=== PATIENT | male | born 1985 | race Hispanic/Latino ===

== ENCOUNTER 2016-09-25 18:46 | Emergency (ER) | payer OTHER ==
[2016-09-25] MEDS ORDERED: CARDIZEM IV ONE (20:01)
[2016-09-25 20:04] LABS: Basophils % (Auto) 0.2 % (0.0-1.8); Eosinophils % (Auto) 1.7 % (0.0-4.3); Hematocrit 41.9 % (35.5-45.6); Hemoglobin 14.8 gm/dl (11.8-15.2); Mean Corpuscular HGB Conc 35 % (32-34); Mean Corpuscular Hemoglobin 31 pg (28-32); Mean Corpuscular Volume 89 fl (84-94); Platelet Count 231 K/mm3 (140-440); Red Blood Count 4.73 M/mm3 (3.65-5.03); Red Cell Distribution Width 12.6 % (13.2-15.2); White Blood Count 10.5 K/mm3 (4.5-11.0)
--- NOTE | 2016-09-25 20:06 | Emergency Department Report ---
ED Palpitations HPI - General Chief Complaint: Arrhythmia/Palpitations Stated Complaint: HEART PALPITATIONS Time Seen by Provider: 09/25/16 19:56 Source: patient Mode of arrival: Ambulatory Limitations: No Limitations - History of Present Illness Initial Comments: Patient is a 22-year-old male with a known history of WPW an ablation in 2006 here with sudden onset of arrhythmia this morning at 9 AM. Patient felt palpitations last heart rate was irregular. He's had some shortness of breath with this. No chest pain. He has not had any episodes of this since his ablation. No fevers chills nausea vomiting. His last meal was approximately 2 hours ago. MD Complaint: rapid heart beat -: Sudden Time: 09:00 Context: occured during rest Arrythmia History: other (WPW) Associated Symptoms: shortness of breath. denies: chest pain, nausea/vomiting, anxiety - Related Data Previous Rx's Medication Instructions Recorded Last Taken Type Metoprolol [Lopressor TAB] 25 mg PO BID #60 tablet 09/25/16 Unknown Rx Allergies Allergy/AdvReac Type Severity Reaction Status Date / Time cefaclor [From Ceclor] Allergy Hives Verified 09/25/16 19:03 Penicillins Allergy Itching Verified 09/25/16 19:03 Sulfa (Sulfonamide Allergy Dizziness Verified 09/25/16 19:03 Antibiotics) ED Review of Systems ROS: Stated complaint: HEART PALPITATIONS Other details as noted in HPI Constitutional: denies: chills, fever Eyes: denies: eye pain, eye discharge, vision change ENT: denies: ear pain, throat pain Respiratory: shortness of breath. denies: cough, wheezing Cardiovascular: palpitations. denies: chest pain Endocrine: no symptoms reported Gastrointestinal: denies: abdominal pain, nausea, diarrhea Musculoskeletal: denies: back pain, joint swelling, arthralgia Skin: denies: rash, lesions Neurological: denies: headache, weakness, paresthesias Psychiatric: denies: anxiety, depression Hematological/Lymphatic: denies: easy bleeding, easy bruising ED Past Medical Hx - Past Medical History Previous Medical History?: Yes Additional medical history: WPW with ablation in 2006 - Surgical History Additional Surgical History: WPW ablasion 2006 - Family History Family history: no significant - Social History Smoking Status: Never Smoker Substance Use Type: None - Medications Home Medications: Home Medications Medication Instructions Recorded Confirmed Last Taken Type Metoprolol [Lopressor TAB] 25 mg PO BID #60 tablet 09/25/16 Unknown Rx ED Physical Exam - General Limitations: No Limitations General appearance: alert, in no apparent distress - Head Head exam: Present: atraumatic, normocephalic - Eye Eye exam: Present: normal appearance - ENT ENT exam: Present: mucous membranes moist - Neck Neck exam: Present: normal inspection - Respiratory Respiratory exam: Present: normal lung sounds bilaterally. Absent: respiratory distress - Cardiovascular Cardiovascular Exam: Present: tachycardia, irregular rhythm, normal heart sounds. Absent: systolic murmur, diastolic murmur, rubs, gallop - GI/Abdominal GI/Abdominal exam: Present: soft, normal bowel sounds - Rectal Rectal exam: Present: deferred - Extremities Exam Extremities exam: Present: normal inspection - Back Exam Back exam: Present: normal inspection - Neurological Exam Neurological exam: Present: alert, oriented X3 - Psychiatric Psychiatric exam: Present: normal affect, normal mood - Skin Skin exam: Present: warm, dry, intact, normal color. Absent: rash ED Course Vital Signs 09/25/16 09/25/16 09/25/16 18:57 19:46 19:57 Pulse Rate 114 H 121 H 100 H Respiratory 18 16 Rate Blood Pressure 117/92 Blood Pressure 126/82 [Right] O2 Sat by Pulse 100 100 Oximetry 09/25/16 09/25/16 09/25/16 20:15 20:30 23:05 Pulse Rate 96 H 96 H 120 H Respiratory 18 19 Rate Blood Pressure 151/106 Blood Pressure 151/106 [Right] O2 Sat by Pulse 100 Oximetry - Procedure Description Procedures done: DC cardioversion 100 J - timeout was called. Patient was sedated with etomidate 10 mg and fentanyl 50 mcg. Cardioversion was successful and patient tolerated the procedure well. - Moderate Sedation Indications: other (cardioversion) ASA Class: I Mallampati Airway Score: 1 Preparation: athletic monitor applied, pulse oximeter, capnometry used, supplemental O2 applied, suction/airway equipment at bedside Fentanyl: IV (50 mg) IV Etomidate Dose (mgs): 10 Complications: none Interventions: oxygen applied Patient Tolerated Procedure: well ED Medical Decision Making - Lab Data Result diagrams: 09/25/16 19:43 09/25/16 19:43 Laboratory Results - last 24 hr 09/25/16 09/25/16 19:43 19:43 WBC 10.5 RBC 4.73 Hgb 14.8 Hct 41.9 MCV 89 MCH 31 MCHC 35 H RDW 12.6 L Plt Count 231 Lymph % (Auto) 28.6 Hayes % (Auto) 5.6 Eos % (Auto) 1.7 Baso % (Auto) 0.2 Lymph # 3.0 Hayes # 0.6 Eos # 0.2 Baso # 0.0 Seg Neutrophils % 63.9 Seg Neutrophils # 6.7 Sodium 143 Potassium 4.3 Chloride 102.0 Carbon Dioxide 26 Anion Gap 19 BUN 10 Creatinine 0.9 Estimated GFR > 60 BUN/Creatinine Ratio 11.11 Glucose 95 Calcium 9.2 Troponin T < 0.010 - EKG Data -: EKG Interpreted by Me Rate: tachycardia - EKG Data 09/25/16 20:06 EKG shows tachycardia rate 120 irregularly irregular rhythm no ST-T wave changes 09/25/16 23:29 Repeat EKG shows sinus rate 79 and normal axis normal intervals and no ST-T wave changes 11:29pm - Medical Decision Making Patient is 30-year-old male with a known history of WPW here with complaint of palpitations and tachycardia. Patient with known onset of symptoms at 9 AM. He denies chest pain nausea vomiting. He is mildly short of breath with this tachycardia. He is hemodynamically stable here in the emergency department. Plan to treat with IV diltiazem single dose and will reassess. Diltiazem slowed rate did not resolve patient's A. fib. Discussed case with on- call cardiology Dr. Becerra. Agrees with plan to perform DC cardioversion. Plan to sedate patient with etomidate and fentanyl. Patient was cardioverted with 100 J. He was sedated with etomidate and fentanyl with success. He was observed for one hour after sedation is alert and oriented and with his mother he will be discharged care of his parents. Portions of this chart were dictated with dictation software. There may be dictation errors contained within this note. Critical Care Time: Yes Critical care time in (mins) excluding proc time.: 45 Critical care attestation.: If time is entered above; I have spent that time in minutes in the direct care of this critically ill patient, excluding procedure time. Critical Care Time: 45 ED Disposition Clinical Impression: Rapid atrial fibrillation Disposition: DC-01 TO HOME OR SELFCARE Is pt being admited?: No Condition: Stable Instructions: Atrial Fibrillation (ED), Cardioversion (ED) Prescriptions: Metoprolol [Lopressor TAB] 25 mg PO BID #60 tablet Referrals: PRIMARY CARE, [Primary Care Provider] - 3-5 Days MED CORCORAN MD [Staff Physician] - 3-5 Days
[2016-09-25 20:15] LABS: Anion Gap 19 mmol/L; BUN/Creatinine Ratio 11.11; Blood Urea Nitrogen 10 mg/dL (9-20); Calcium 9.2 mg/dL (8.4-10.2); Carbon Dioxide 26 mmol/L (22-30); Glucose 95 mg/dL (75-100); Potassium 4.3 mmol/L (3.6-5.0); Sodium 143 mmol/L (137-145)
[2016-09-25] MEDS ORDERED: AMIDATE IV ONE (21:20)
[2016-09-25] MEDS ORDERED: SUBLIMAZE IV ONE (21:20)
[2016-09-25] MEDS ORDERED: NACL 0.9% 1000 ML 1,000 ML ONE (22:45)
[2016-09-26 01:06] VITALS: BP 130/77
--- NOTE | 2016-09-26 07:43 | XRay Report ---
Chest 2 views: History: Shortness of breath. Findings: Normal cardiomediastinal silhouette. Trachea is midline. No consolidation, pneumothorax or pleural effusion. Impression: No acute cardiopulmonary findings.
== END 2016-09-26 01:03 | disposition home or self-care (01) ==
LOC: ED 18:46
DX: I48.91 Unspecified atrial fibrillation (principal); Z88.0 Allergy status to penicillin; Z88.2 Allergy status to sulfonamides; Z88.8 Allergy status to other drugs, medicaments and biological substances
CPT/HCPCS: 36415; 71020; 80048; 84484; 85025; 92960; 93005; 93010; 96374; 99291; J3010; J7030